=== PATIENT | female | born 1995 | race Caucasian/White ===

== ENCOUNTER 2019-07-21 17:08 | Emergency (ER) | payer MEDICAID, SELFPAY ==
[2019-07-21 17:09] VITALS: BP 140/79; PULSE 103; RESP 16; TEMP 36.6; O2SAT 100; BMI 28.7
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
[2019-07-21] MEDS: Acetaminophen 500 MG Tablet 1000 MG PO (18:40)
[2019-07-21] MEDS: Ondansetron ODT 4 MG Tablet 8 MG PO (18:40)
== END 2019-07-21 20:08 | disposition home or self-care (01) ==
PROVIDERS: Emergency Provider Emergency Medicine
DX: S39.012A Strain of muscle, fascia and tendon of lower back, initial encounter (principal); S16.1XXA Strain of muscle, fascia and tendon at neck level, initial encounter; S00.03XA Contusion of scalp, initial encounter; R11.0 Nausea; R40.2410 Glasgow coma scale score 13-15, unspecified time; V89.2XXA Person injured in unspecified motor-vehicle accident, traffic, initial encounter; Y93.9 Activity, unspecified; Y92.9 Unspecified place or not applicable; M54.5 Low back pain; G89.29 Other chronic pain; F17.200 Nicotine dependence, unspecified, uncomplicated
CPT/HCPCS: 72100; 99281

== ENCOUNTER → 2019-11-14 13:25 | Outpatient (CLI) | payer MEDICAID, SELFPAY ==
[2019-11-14 15:52] LABS: hCG Titer Quant., Serum < 1 mIU/mL (1-3)
[2019-11-14 16:11] LABS: Free T3 3.6 pg/mL (2.18-3.98); Thyroid Stim Hormone (TSH) 1.96 uIU/mL (0.358-3.74)
== END ==
PROVIDERS: Visit Provider Obstetrics & Gynecology
DX: N91.2 Amenorrhea, unspecified (principal); Z12.4 Encounter for screening for malignant neoplasm of cervix
CPT/HCPCS: 36415; 84439; 84443; 84481; 84702

== ENCOUNTER 2022-07-24 19:54 | Emergency (ER) | payer OTHER, MEDICAID, SELFPAY ==
[2022-07-24 19:55] VITALS: BP 160/91; PULSE 100; RESP 18; TEMP 36.4; O2SAT 99; BMI 31.5
--- NOTE | 2022-07-24 20:12 | EX.ED.DYSGE1 ---
HPI History of Present Illness Chief Complaint: Nausea/Vomiting/Diarrhea Informant: patient and parent Narrative Narrative: Vomiting diarrhea for 3 days. There was a family member similar symptoms only lasted 1 day. Denies abdominal pain. Denies fevers. Denies recent antibiotics. Denies recent travel. Denies any allergies Tylenol. Today had to leave work. She states she kept going to the bathroom both vomiting and diarrhea. No hematemesis no bloody stools. History of PCOS here for his abnormal menstrual periods. Denies urinary symptoms. Denies fevers. Mild headache. No cough. Nonvaccinated for COVID had COVID initially few years ago. PFSH PFSH Medical History no medical history Home Medications ondansetron 4 mg disintegrating tablet 4 mg PO Q6H PRN nausea and vomiting #10 tabs 07/24/22 [Rx Last Taken Unknown] Allergy/AdvReac Type Severity Reaction Status Date / Time No Known Allergies Allergy Verified 07/24/22 19:57 Social History Smoking Status: Current every day smoker tobacco type: cigarettes ROS ROS ED Constitutional Constitutional ED: Denies chills, fever(s) or sweats Eyes Eyes: Denies change in vision ENT ENT ED: Denies dysphagia or sore throat Cardiovascular Cardiovascular: Denies chest pain, leg edema, palpitations or racing heartbeat Respiratory/Chest Respiratory/Chest: Denies cough, dyspnea or dyspnea on exertion Gastrointestinal Gastrointestinal: Reports diarrhea, nausea and vomiting; Denies abdominal pain Genitourinary Genitourinary ED: Denies dysuria, hematuria or urinary frequency Musculoskeletal Musculoskeletal: Denies back pain, extremity pain or neck pain Integumentary Denies rash or wounds Neurologic Neurologic: Reports headache(s); Denies paresthesias or weakness EXAM Physical Exam Const Vital Signs: 07/24/22 19:55 Temperature 97.6 F L Temperature Source Temporal Pulse Rate 100 Respiratory Rate 18 Blood Pressure 160/91 H Blood Pressure Mean 114 Pulse Ox 99 Oxygen Delivery Method Room Air Positive well nourished and well developed General Appearance ED: well developed and NAD HEENT Reports moist mucous membranes normocephalic and atraumatic Eyes PERRL, EOMs intact bilaterally and conjunctivae normal General Eye ED: Yes normal appearance of both eyes Neck no lymphadenopathy and supple Neck Narrative: No meningismus General: Negative for tenderness Chest Wall Chest: Negative for tenderness Resp normal respiratory effort and normal air movement Effort and Inspection: symmetric chest movement; Negative for respiratory distress Cardio regular rate, regular rhythm and no murmurs Peripheral Pulses: pulses 2+ throughout GI normal to inspection, nondistended, normoactive bowel sounds and non-tender GI Narrative: Negative Camejo's or McBurney's tenderness. No guarding or rebound. Palpation: Negative for guarding or rebound tenderness present Back/Spine no CVA tenderness and no thoracic nor lumbar tenderness Extremity normal to inspection General Extremety ED: Negative for edema or tenderness General Extremity: Negative for edema Neuro oriented x3 and no sensory deficits noted Sensorium / Orientation: awake and alert Skin no rashes or lesions noted and no wounds MDM MDM MDM Narrative Medical decision making narrative: Patient nontoxic no clinical dehydration. Soft abdomen. No C. difficile risk factors. Patient declined COVID testing. She declined any IV or labs. She is given oral Zofran. She is tolerating oral fluids. Prescription for Zofran sent with patient through meds to bed. Discussed continuing oral fluids for hydration. Work note given. Outpatient follow-up given. All questions were answered. Discharge Plan Triage Chief Complaint: Nausea/Vomiting/Diarrhea ED Provider: Medardo Gomez Dx/Rx/DC Orders Clinical Impression: Nausea & vomiting, Diarrhea Instructions: ED Vomiting and Diarrhea ... Prescriptions: New ondansetron 4 mg tablet,disintegrating 4 mg PO Q6H PRN (Reason: nausea and vomiting) Qty: 10 0RF Primary Care Provider: Care Physician,No Primary Referrals: Kamryn Hammond [Non-Staff] - 3-5 Days if not improving Care Physician,No Primary [Primary Care Provider] - Disposition Disposition: Home, Self Care Discharge Date/Time: 07/24/22 21:41
[2022-07-24] MEDS: Ondansetron ODT 4 MG Tablet PO (20:16)
== END 2022-07-24 21:41 | disposition home or self-care (01) ==
PROVIDERS: Emergency Provider Emergency Medicine; Visit Provider Emergency Medicine
DX: R11.2 Nausea with vomiting, unspecified (principal); R19.7 Diarrhea, unspecified; F17.210 Nicotine dependence, cigarettes, uncomplicated; Z86.16 Personal history of COVID-19
CPT/HCPCS: 99283